=== PATIENT | female | born 1955 | race Caucasian/White ===

== ENCOUNTER → 2016-12-28 | Outpatient (CLI) | payer OTHER ==
--- NOTE | 2016-12-28 09:59 | RAD ---
CHEST PA LATERAL Technique: PA and lateral views of the chest were obtained. Clinical History: CHEST CONGESTION W NON PROD COUGH X 2 WKS, SOA Comparison: 01/07/2015. Findings: The heart and pulmonary vasculature appear within normal limits.. The pleural margins are clear. Impression: No acute chest process is seen.
== END | disposition home or self-care (01) ==
LOC: DXRADRC 08:40
PROVIDERS: ATTEND Physician Assistant Medical
DX: R09.89 Other specified symptoms and signs involving the circulatory and respiratory systems (principal); R05 Cough
CPT/HCPCS: 71020

== ENCOUNTER 2017-11-29 16:53 | Emergency (ER) | payer OTHER ==
--- NOTE | 2017-11-29 18:02 | PHYS DOC ---
Adult General Chief Complaint Chief Complaint: MECHANICAL FALL HPI HPI 62-year-old female presents after fall at home. The patient was walking across her front yard when she tripped over something and fell onto her chest. She was able to get up but didn't think she was hurt badly. She did hit the edge of her head slightly, but states was more of a scraped them striking the ground. She denies loss of consciousness. This occurred 90 minutes ago. After she got back up and went inside, she began to feel like she had pain in her left chest along her ribs which is worse with deep breathing. She denies shortness of breath. She has no cardiac history. She is not on any blood thinners. She called her PCP who advised she come here see if she broke a rib. Review of Systems Review of Systems Constitutional: Denies fever or chills [] Eyes: Denies change in visual acuity, redness, or eye pain [] HENT: Denies nasal congestion or sore throat [] Respiratory: Denies cough or shortness of breath [] Cardiovascular: No additional information not addressed in HPI [] GI: Denies abdominal pain, nausea, vomiting, bloody stools or diarrhea [] : Denies dysuria or hematuria [] Musculoskeletal: Left anterior rib pain[] Integument: Denies rash or skin lesions [] Neurologic: Denies headache, focal weakness or sensory changes [] Endocrine: Denies polyuria or polydipsia [] All other systems were reviewed and found to be within normal limits, except as documented in this note. Allergies Allergies Allergies Coded Allergies Type Severity Reaction Last Updated Verified cephalexin Allergy Unknown 11/29/17 Yes Physical Exam Physical Exam Constitutional: Well developed, well nourished, no acute distress, non-toxic appearance. [] HENT: Normocephalic, atraumatic, bilateral external ears normal, oropharynx moist, no oral exudates, nose normal. [] Eyes: PERRLA, EOMI, conjunctiva normal, no discharge. [] Neck: Normal range of motion, no tenderness, supple, no stridor. [] Cardiovascular:Heart rate regular rhythm, no murmur [] Lungs & Thorax: Bilateral breath sounds clear to auscultation. Pain with palpation over the fourth and fifth rib, anterior on the left [] Abdomen: Bowel sounds normal, soft, no tenderness, no masses, no pulsatile masses. [] Skin: Warm, dry, no erythema, no rash. [] Back: No tenderness, no CVA tenderness. [] Extremities: No tenderness, no cyanosis, no clubbing, ROM intact, no edema. [] Neurologic: Alert and oriented X 3, normal motor function, normal sensory function, no focal deficits noted. [] Psychologic: Affect normal, judgement normal, mood normal. [] EKG EKG [] Radiology/Procedures Radiology/Procedures [] Impressions: Preliminary read: no fracture Course & Med Decision Making Course & Med Decision Making Pertinent Labs and Imaging studies reviewed. (See chart for details) The patient's x-rays are negative for fracture. The patient has a chest contusion. I believe she can be managed with [id number] pain medicine at home. She is stable for discharge at this time. [] Dragon Disclaimer Dragon Disclaimer This electronic medical record was generated, in whole or in part, using a voice recognition dictation system. Departure Departure: Referrals: ROBERT MORALES MD (PCP) CATRACHO VASQUEZ DO Nov 29, 2017 18:02
[2017-11-29 19:30] VITALS: BP 141/87
--- NOTE | 2017-11-30 05:23 | RAD ---
PA CHEST AND LEFT RIB SERIES Clinical Indication: FALL TODAY, PAIN MID CHEST, LEFT SIDE Comparison: Two-view chest December 28, 2016. Findings: The cardiomediastinal silhouette is normal. Pulmonary vasculature is normal. The lungs are clear. No pleural effusion or pneumothorax is seen. There is degenerative endplate spurring in the thoracolumbar spine. There is no acute displaced rib fracture. A nondisplaced or subtle rib fracture could be obscured. IMPRESSION: 1. No acute cardiopulmonary process. 2. No acute displaced rib fracture. Electronically signed by: Pasquale Ochoa MD (11/30/2017 5:20 AM) [id number]
== END 2017-11-29 19:30 | disposition home or self-care (01) ==
LOC: ER 16:53
DX: S20.212A Contusion of left front wall of thorax, initial encounter (principal); Z88.1 Allergy status to other antibiotic agents; W01.0XXA Fall on same level from slipping, tripping and stumbling without subsequent striking against object, initial encounter; Y93.01 Activity, walking, marching and hiking; Y92.096 Garden or yard of other non-institutional residence as the place of occurrence of the external cause; Y99.8 Other external cause status
CPT/HCPCS: 71101; 99284

== ENCOUNTER → 2021-06-23 | Outpatient (CLI) | payer MEDICARE, OTHER ==
--- NOTE | 2021-06-23 16:34 | RAD ---
INDICATION: Reason: HYDRONEPHROSIS OF LT KIDNEY / Spl. Instructions: / History: COMPARISON: March 2006 TECHNIQUE: Grayscale and color ultrasound images obtained of the bilateral kidneys and bladder. FINDINGS: Right Kidney: 117 mm. Left Kidney: 93 mm. Mild left-sided hydronephrosis. Echogenic focus of the left kidney measuring 8-9 mm. Bladder: 21 mm prevoid. IMPRESSION: * Mild left-sided hydronephrosis. * Echogenic focus at the left kidney which could be from a calcification or nonobstructive stone. Electronically signed by: Oseas Earl MD (06/23/2021 4:32 PM) [id number]
== END ==
LOC: US 15:36
PROVIDERS: ATTEND Nurse Practitioner Adult Health
DX: N13.30 Unspecified hydronephrosis (principal)
CPT/HCPCS: 76770

== ENCOUNTER → 2021-08-07 | Outpatient (CLI) | payer MEDICARE, OTHER ==
--- NOTE | 2021-08-07 15:20 | RAD ---
EXAM: US RENAL BILAT 08/07/2021 12:57 PM INDICATION: Left hydronephrosis. COMPARISON: Renal ultrasound 06/23/2021 TECHNIQUE: Grayscale and color Doppler ultrasound of the kidneys FINDINGS: The right kidney measures 10.5 x 5.1 x 6.4 cm. The left kidney measures 9.6 x 5.0 x 4.9 cm. Renal e chogenicity and cortical thickness are normal. Unchanged mild left hydronephrosis. No definite nephr olithiasis identified. The urinary bladder is normal in appearance. Left ureteral jet is not visualized. Bladder volume is 6 3 cc. The IVC is patent at the level the liver. The abdominal aorta measures 2.4 cm, 2.0 cm, and 1.6 cm in the proximal, mid, and distal portion respectively. IMPRESSION: Unchanged mild left hydronephrosis. Electronically signed by: Madelyn Zavala MD (08/07/2021 3:18 PM) [id number]
== END ==
LOC: US 12:52
PROVIDERS: ATTEND Urology
DX: N13.30 Unspecified hydronephrosis (principal)
CPT/HCPCS: 76770